=== PATIENT | male | born 1990 | race Hispanic/Latino ===

== ENCOUNTER 2023-04-06 13:44 | Emergency (ER) | payer OTHER ==
[~2023-04-06] VITALS: Ht 177.8 cm; Wt 83.1 kg
[2023-04-06 14:17] LABS: BASOPHILS 0.3 % (0-2); EOSINOPHILS 1.5 % (0-6); HEMATOCRIT 43.1 % (35.0-50.0); HEMOGLOBIN 15.3 g/dL (12.0-18.0); LYMPHOCYTES 17.5 % (24-44); MCH 32.1 (27-36); MCHC 35.5 g/dl (30-36); MCV 90.5 fl (81-99); MONOCYTES 5.4 % (0-12); NEUTROPHILS 75.3 % (39-80); PLATELET COUNT 273 K/uL (140-440); RBC 4.76 M/ul (4.3-5.7); RDW 13.2 (10.5-15.0)
[2023-04-06 14:26] LABS: ALBUMIN 3.1 g/dL (3.4-5.0); ALBUMIN/GLOBULIN RATIO 0.74 (1.1-2.4); ANION GAP 14.6 (7-21); BILIRUBIN, TOTAL 0.4 ng/dL (0.2-1.0); CALCIUM 8.3 mg/dL (8.5-10.1); POTASSIUM 3.6 mmol/L (3.5-5.1); PROTEIN, TOTAL 7.3 g/dL (6.4-8.2)
[2023-04-06 14:37] LABS: BILIRUBIN, URINE NEGATIVE (negative); BLOOD/HGB, URINE NEGATIVE (Negative); KETONE, URINE NEGATIVE (Negative); LEUK ESTERASE, URINE NEGATIVE (negative); NITRITE, URINE NEGATIVE (negative)
[2023-04-06 15:28] VITALS: BP 141/96
== END 2023-04-06 15:29 | disposition home or self-care (01) ==
LOC: ED 13:44
PROVIDERS: Emergency Medicine
DX: R10.32 Left lower quadrant pain (principal)
CPT/HCPCS: 36415; 80053; 81003; 83690; 85025; 99284; J7030